=== PATIENT | female | born 1975 | race Caucasian/White ===

== ENCOUNTER 2018-03-11 06:56 | Day surgery (SDC) | payer BC ==
[~2018-03-11] VITALS: Ht 175.3 cm; Wt 118.1 kg
[~2018-03-11 06:56] MED LIST: ASCORBIC ACID500 M3 PO; BUSPAR15 MG PO; CALCIUM 500 MG1 EACH PO; CELEXA20 MG PO; CHILDREN'S MUL1 EAC8 PO; FERROCITE324 MG PO; FLAX OIL1000 MG PO; LYRICA75 MG PO; MAGNESIUM OXID200 MG PO; PAXIL20 MG PO; PRILOSEC40 MG PO; PROTONIX40 MG PO; Pristiq PO; TYLENOL EXTRA500 MG PO; Tylenol Extra Streng PO; VITAMIN B122500 MCG PO; VITAMIN D31000 UNIT PO; Vicodin,Norco 5/325 PO; Voltaren PO; Wellbutrin XL PO; ZESTRIL2.5 MG PO; Zestril,Prinivil PO; celeBREX PO
[2018-03-11 07:36] VITALS: BP 143/88
[2018-03-11] MEDS ORDERED: IBUPROFEN800 MG PO (12:30)
[2018-03-11] MEDS ORDERED: ENDOCET 5-3251 EACH PO (12:30)
[2018-03-11 14:33] VITALS: BP 146/83
[2018-03-11 15:33] VITALS: BP 144/85
== END 2018-03-11 15:50 | disposition home or self-care (01) ==
LOC: SDC
DX: N72 Inflammatory disease of cervix uteri (principal); N92.0 Excessive and frequent menstruation with regular cycle; N83.11 Corpus luteum cyst of right ovary; I10 Essential (primary) hypertension; J45.909 Unspecified asthma, uncomplicated; K21.9 Gastro-esophageal reflux disease without esophagitis; E78.00 Pure hypercholesterolemia, unspecified; Z90.721 Acquired absence of ovaries, unilateral; Z90.79 Acquired absence of other genital organ(s); Z87.891 Personal history of nicotine dependence; E66.9 Obesity, unspecified; Z68.37 Body mass index [BMI] 37.0-37.9, adult
CPT/HCPCS: 88307; J0131; J0330; J1100; J1170; J2250; J2274; J2405; J3010